=== PATIENT | male | born 1955 | race Two or more races ===

== ENCOUNTER 2020-09-22 14:03 | Emergency (ER) | payer OTHER ==
[~2020-09-22] VITALS: Ht 175.3 cm; Wt 87.5 kg
[~2020-09-22 14:03] MED LIST: AVAPRO 300MG
[2020-09-22] MEDS ORDERED: COZAAR100 MG PO (14:14)
[2020-09-22] MEDS ORDERED: JANUMET 50-1,01 EACH PO (14:14)
[2020-09-22] MEDS ORDERED: ANODYNE LPT 2.1 EACH (14:17)
[2020-09-22] MEDS ORDERED: NORVASC5 MG (14:18)
== END 2020-09-22 21:48 | disposition home or self-care (01) ==
LOC: ER 14:03
DX: M13.171 Monoarthritis, not elsewhere classified, right ankle and foot (principal)